=== PATIENT | male | born 1945 | race Caucasian/White ===

== ENCOUNTER 2016-07-25 04:41 | Inpatient (IN) | payer OTHER, MEDICARE ==
[~2016-07-25] VITALS: Ht 160 cm; Wt 87.5 kg
[~2016-07-25 04:41] MED LIST: ASPIRIN EC81 M1 PO; ATORVASTATIN CA40 M1 PO; CARVEDILOL3.125 M1 PO; FERROUS SULFAT324 MG PO; LISINOPRIL5 M1 PO; OCUVITE WITH L1 EACH PO; OMEPRAZOLE20 M2 PO; PLAVIX75 M1 PO; SYNTHROID50 MCG PO
[2016-07-25] MEDS ORDERED: MS CONTIN15 M2 PO (10:37)
[2016-07-25] MEDS ORDERED: MIRALAX17 G1 PO (10:37)
[2016-07-25] MEDS ORDERED: ASPIRIN325 M2 PO (10:37)
[2016-07-25] MEDS ORDERED: COLACE100 M1 PO (10:37)
[2016-07-25] MEDS ORDERED: DILAUDID4 M1 PO (10:37)
--- NOTE | 2016-07-25 10:42 | Patient Discharge Instructions ---
See Addendum Discharge Instructions General Discharge Information You were seen/treated for: Right hip osteoarthritis You had these procedures: Right total hip arthroplasty Special Instructions: Follow-up with Dr. Alcantara in 6 weeks. Call the office with any concerns of fever greater than 101.5. Large amounts of discharge or drainage from the wound or inability to bear weight on your operative side. The visiting nurse will remove your sutures/petey in approximately 2 weeks' time if applicable You may weight-bear as tolerated. Activity as tolerated. Keep the dressing dry as possible, you may shower with the dressing in place however, do not take a bath or submerge the wound in water as this will increase her chance of infection. Change the dressings after the shower. You may use dry gauze and tape or large Band-Aids Do not apply any ointments to the wound. Due to a risk of blood clots you'll need to be on aspirin 81 mg twice a day for the next 4 weeks. *Please hold your Plavix until 6 days after surgery. You may restart it on July 29 Take pain medication as directed. Apply ice as needed for 20 minutes every hour for the first few days. Please take Colace and/or MiraLAX [id number] to avoid constipation while you're on narcotic pain medication. Diet Continue normal diet: Yes Activity Full Activity/No Limits: No Activity Self Limited: Yes Pounds, do NOT lift more than: 10 Additional ACTIVITY Info: WEIGHT BEAR TOLERATED Acute Coronary Syndrome Inclusion Criteria At CA or during hospital stay patient has or had the following: ACS DIAGNOSIS No Discharge Core Measures Meds if any: Prescribed or Continued at Discharge Meds if any: NOT Prescribed or Continued at Discharge Congestive Heart Failure Inclusion Criteria At DC or during hospital stay patient has or had the following: CHF DIAGNOSIS No Discharge Core Measures Meds if any: Prescribed or Continued at Discharge Meds if any: NOT Prescribed or Continued at Discharge Cerebrovascular accident Inclusion Criteria At DC or during hospital stay patient has or had the following: CVA/TIA Diagnosis No Discharge Core Measures Meds if any: Prescribed or Continued at Discharge Meds if any: NOT Prescribed or Continued at Discharge Venous thromboembolism Inclusion Criteria VTE Diagnosis No VTE Type NONE VTE Confirmed by (Test) NONE Discharge Core Measures - Per Current guidelines, there needs to be overlap - treatment for the first 5 days of Warfarin therapy. - If discharged on Warfarin prior to 5 days of - overlap therapy, the patient will need to be - assessed for post discharge needs including - *Post discharge parental anticoagulation - *Warfarin and/or parental anticoagulation education - *Follow up date to check INR post discharge At least 5 days overlap therapy as Inpatient No Meds if any: Prescribed or Continued at Discharge Note: Overlap Therapy is Warfarin and Anticoagulant Meds if any: NOT Prescribed or Continued at Discharge
--- NOTE | 2016-07-25 10:43 | Admission Core Measures ---
Admission Meds I reviewed the following Meds: Current Medications Sig/Alyssa Start time Last Medication Dose Stop Time Status Admin Acetaminophen 975 MG ONCE 07/25 0000 NR (Tylenol) 07/25 2358 Atorvastatin Calcium 40 MG 1700 07/25 170 AC (Lipitor) Carvedilol 3.125 MG BID 07/25 2199 AC (Coreg) Cefazolin Sodium 2,000 MG ONCE 07/25 0000 NR (Kefzol-Ancef Inj) 07/25 2358 Ferrous Sulfate 325 MG BID 07/25 2199 AC (Feosol) Levothyroxine Sodium 0.05 MG DAILY AC 07/26 07 AC (Synthroid) Lisinopril 5 MG DAILY 07/26 1000 AC (Prinivil) Omeprazole 20 MG DAILY AC 07/26 07 AC (Prilosec) Oxycodone HCl 10 MG ONCE 07/25 0000 NR (Roxicodone) 07/25 2358 Acute Coronary Syndrome Inclusion Criteria ACS Diagnosis No Inpatient Core Measures LDL Reminder: If No, please order W/I first 24hr of stay Congestive Heart Failure Inclusion Criteria CHF Diagnosis No Cerebrovascular accident Inclusion Criteria CVA/TIA Diagnosis No Inpatient Core Measures Bedside Swallow Eval Reminder: If BSE failed, place ST order Antithrombotic Reminder: Order Antithrombotic Medication by end of day 2 Antithrombotic Reminder: Document Reason Antithrombotic Not ordered by end of day 2 AFIB/Flutter Reminder: If Present, add to problem list AFIB/Flutter Reminder: Order Anticoag Medication for pts with AFIB/Flutter Atherosclerosis Reminder: If Present, add to problem list LDL Reminder: If No, please order W/I first 24hr of stay PT Order Reminder: If No, please order Venous thromboembolism Inpatient Core Measures VTE Risk Factors: Age > 40, Surgery VTE [facility]axis [facility] VTE prophylaxis d/t No contraindications No VTE Pharm Prophylaxis d/t No contraindications Inclusion Criteria - Per Current guidelines, there needs to be overlap - treatment for the first 5 days of Warfarin therapy. - Parenteral Anticoagulation (IV or SC) needs to be - given along with Warfarin therapy. VTE Diagnosis No VTE Type NONE VTE Confirmed by (Test) NONE Problem List As ranked by this Provider includes Assessment & Plan 1. Unilateral primary osteoarthritis, right hip HOME MEDS Home Med List Aspirin (Ecotrin*) 81 MG TABLET.DR 1 TAB PO DAILY PROPHO (Reported) Aspirin (Aspirin*) 325 MG TABLET 1 TAB PO BID DVT PROPHYLAXSIS Atorvastatin Calcium 40 MG TABLET 1 TAB PO DAILY CHOL (Reported) Carvedilol 3.125 MG TABLET 1 TAB PO BID BP (Reported) Clopidogrel Bisulfate (Plavix) 75 MG TABLET 1 TAB PO DAILY CARDIAC (Reported) Docusate Sodium (Colace) 100 MG CAPSULE 1 CAP PO BID CONSTIPATION Ferrous Sulfate 324 MG (65 MG IRON) TABLET.DR 1 TAB PO DAILY ANEMIA (Reported ) Hydromorphone HCl (Dilaudid) 4 MG TABLET 1-2 TAB PO Q4-6 PRN PRN PAIN Levothyroxine Sodium (Synthroid) 50 MCG TABLET 1 TAB PO DAILY HYPOTHYROID ( Reported) Lisinopril 5 MG TABLET 1 TAB PO DAILY BP (Reported) Morphine Sulfate (Ms Contin) 15 MG TABLET.ER 1 TAB PO BID PAIN Omeprazole 20 MG CAPSULE.DR 1 TAB PO DAILY GERD (Reported) Polyethylene Glycol 3350 (Miralax) 17 GRAM POWD.PACK 1 PAC PO DAILY CONSTIPATION Vit A,C & E/Lutein/Minerals (Ocuvite With Lutein Tablet) 1,000-60-2 TABLET 1 TAB PO DAILY EYES (Reported)
--- NOTE | 2016-07-25 10:51 | Surgical Discharge Summary ---
See Addendum Visit Information Visit Dates Admission Date: 07/25/16 Discharge Date: 07/26/2016 History of Present Illness Chief Complaint: Right hip pain secondary to osteoarthritis Surgical History Pertinent Surgical History: non-contributory Review of Systems: SEE H&P Hospital Course Course Attending Physician: KENNETH SAMPSON MD Primary Care Physician: UNKNOWN Hospital Course: Patient was admitted for elective RIGHT hip replacement secondary to osteoarthritis. The patient tolerated the procedure well without complications. Postoperatively the patient was monitored and tolerated by mouth intake, vital signs are stable, afebrile. Patient was able to void spontaneously. Pain was well-controlled. Evaluated by physical therapy and deemed stable for discharge home. Plan is to follow up as scheduled and instructed to call with any questions or concerns Allergies: Coded Allergies: No Known Allergies (07/25/16) Disposition Summary Disposition Principal Diagnosis: Primary unilateral right hip osteoarthritis Additional Diagnosis: See H&P Discharge Disposition: home health services Discharge Instructions General Discharge Information Code Status: Full Code Patient's Diet: Regular Patient's Activity: As tolerated, no lifting over 10 pounds Follow-Up Instructions/Appts: Follow-up with Dr. Sampson in 6 weeks Medications at Discharge Discharge Medications: Stop taking the following medications: Aspirin (Ecotrin*) 81 MG TABLET.DR ORAL DAILY Clopidogrel Bisulfate (Plavix) 75 MG TABLET ORAL DAILY Continue taking these medications: Omeprazole (Omeprazole) 20 MG CAPSULE. 1 Tablet ORAL DAILY Levothyroxine Sodium (Synthroid) 50 MCG TABLET 1 Tablet ORAL DAILY Lisinopril (Lisinopril) 5 MG TABLET 1 Tablet ORAL DAILY Carvedilol (Carvedilol) 3.125 MG TABLET 1 Tablet ORAL TWICE DAILY Ferrous Sulfate (Ferrous Sulfate) 324 MG (65 MG IRON) TABLET.DR 1 Tablet ORAL DAILY Atorvastatin Calcium (Atorvastatin Calcium) 40 MG TABLET 1 Tablet ORAL DAILY Vit A,C & E/Lutein/Minerals (Ocuvite With Lutein Tablet) 1,000-60-2 TABLET 1 Tablet ORAL DAILY Start taking the following new medications: Morphine Sulfate (Ms Contin) 15 MG TABLET.ER 1 Tablet ORAL TWICE DAILY Qty = 5 No Refills Hydromorphone HCl (Dilaudid) 4 MG TABLET 1-2 Tablet ORAL EVERY 4-6 HOURS NEEDED as needed for PAIN Qty = 36 No Refills Docusate Sodium (Colace) 100 MG CAPSULE 1 Capsule ORAL TWICE DAILY Qty = 30 No Refills Polyethylene Glycol 3350 (Miralax) 17 GRAM POWD.PACK 1 Packet ORAL DAILY Qty = 30 No Refills Instructions: dissolve in water Aspirin (Lo-Dose Aspirin EC) 81 MG TABLET.DR 1 Tablet ORAL TWICE DAILY Qty = 60 No Refills Instructions: CONTINUE FOR 4 WEEKS
[2016-07-25] MEDS ORDERED: LO-DOSE ASPIRIN81 MG PO (11:53)
--- NOTE | 2016-07-25 12:35 | RADIOLOGY REPORT ---
EXAMINATION: XR HIP, RIGHT CLINICAL INFORMATION: Status post right hip replacement. COMPARISON: None TECHNIQUE: Two views of the right hip performed on 3 images. FINDINGS: The patient is status post total right hip arthroplasty with anatomic alignment of the prosthetic component seen. No hardware failure or [place] bone fracture is noted. Postoperative emphysema in the soft tissues is noted. Prominent arteriovascular calcifications are seen with a vascular stent seen in the right iliac artery. IMPRESSION: Anatomic alignment status post total right hip arthroplasty with no evidence of hardware failure or [place] bone fracture seen.
[2016-07-25 13:26] VITALS: BP 102/60
--- NOTE | 2016-07-25 14:42 | NUR ---
12:50- PT ARRIVED TO FLOOR VIA STRETCHER FROM PACU. REPORT RECEIVED FROM DARNELL/ COUNSELING CASE MANAGER. VSS.SURG PA YUSUF MADE AWARE OF B/P 102/60, HR 56. VITAL SIGNS SIMILAR IN PACU AND STABLE PER SURG PA. PT STATES PAIN 0/10 AT THIS TIME. +CMS TO RLE. DRESSING TO R HIP C,D,I. ORIENTED TO ROOM AND CALL LIGHT FOR ASSIST.
[2016-07-25 14:50] VITALS: BP 104/58
--- NOTE | 2016-07-25 15:09 | PN- Orthopedic ---
Subjective Subjective: The patient was seen this afternoon postoperatively. He reports that his pain is under adequate control and he is ambulating well with physical therapy. He has voided postoperatively and has just started a diet. He has no other complaints at the current time and wishes to stay until tomorrow morning to make sure that everything is okay. Objective Vital Signs and I&Os Vital Signs Date Time Temp Pulse Resp B/P Pulse O2 O2 Flow FiO2 Ox Delivery Rate 07/25 1450 98.0 84 18 104/58 94 Room Air 07/25 1326 97.7 56 18 102/60 94 Room Air Intake & Output 07/25 1600 07/25 0800 07/25 0000 07/24 1600 07/24 0800 07/24 0000 Intake Total Output Total Balance Patient 193 lb Weight Physical Exam: Gen.: Alert and in no obvious distress Skin: Warm and dry Cardiac: S1-S2 regular Pulmonary: Bilateral breath sounds equal with adequate exchange Extremities: Bilateral lower extremities are warm without calf tenderness or significant edema. Gross motor and sensory are intact. Right hip surgical dressing is clean, dry, and intact. Assessment/Plan Assessment/Plan Assessment: 71-year-old male status post right total hip arthroplasty postoperative day #1. The patient is progressing as expected and his pain is under adequate control. Plan: Out of bed with physical therapy patient is weightbearing as tolerated Begin aspirin 81 mg by mouth twice a day first dose tonight Patient will resuming his Plavix in 5 days Continue current pain regiment Advance diet as tolerated Hep-Lock IV fluids once tolerating diet GI and DVT prophylaxis Probable discharge home tomorrow Core Measures/Miscellaneous Venous Thromboembolism VTE Risk Factors: Age > 40, Surgery VTE Contraindications: No Contraindications VTE Prophylaxis Ordered Inpt: Mech & Pharm VTE Diagnosis: No VTE Type: NONE VTE Confirmed by (Test): NONE Beta Rodriguez Is Beta Rodriguez a Home Med? Yes If Yes, Was This Ordered Today? Yes Antibiotics Is Patient on Antibiotics? Yes If Yes: prophylaxis
--- NOTE | 2016-07-25 16:53 | Operative Report ---
Operative/Inv Procedure Report Surgery Date: 07/25/16 Name of Procedure: Right total hip replacement Pre-Operative Diagnosis: Primary right hip DJD Post-Operative Diagnosis: Same Estimated Blood Loss: 300 Surgeon/Smeller: CAMILLA VYAS,KENNETH Santo Anesthesia: block Operative/Procedure Note Note: Description of Procedure: The patient was taken to the operating room and positively identified. After induction of spinal anesthesia and administration of appropriate pre-operative antibiotics, the patient was positioned supine on the operating room table and all bony prominences were well padded. After performing a surgical timeout, the right lower extremity was prepped and draped in the usual sterile fashion. A direct anterior approach was made to the right hip. The incision was carried sharply through superficial soft tissues to the level of the fascia. Meticulous hemostasis was maintained with Bovie electocautery. The fascia over the tensor fascia ирина muscle was opened sharply and the interval between the TFL and the sartorius was entered bluntly taking care to stay lateral to the lateral femoral cutaneous nerve. Retractors were placed around the femoral neck and the pericapsular fat was identified. The ascending branches of the lateral femoral circumflex vessels were identified and carefully coagulated. The pericapsular fat and anterior capsule were then resected. A napkin ring osteotomy was performed and the femoral head was removed without difficulty. Attention was then turned to the acetabulum. After appropriate placement of retractors, the acetabulum was exposed. Soft tissue was cleaned from the acetabular margin and notch. Overhanging osteophytes were removed and the teardrop was exposed. The acetabulum was then sequentially reamed to accept a 60 mm Imler Tritanium hemispherical cluster hole shell. This was impacted into place in the appropriate position and a screw was used for supplemental fixation. It was then fitted with a 36 mm Trident X3 zero degree polyethylene insert. Attention was then turned to the femur. After performing the appropriate ligament releases, the proximal femur was exposed. It was then sequentially broached to accept a size 4 Alejandrina accolade 2 stem. This was trialed for leg length and stability. The trial component was removed and the final component was impacted into place. The trunnion was carefully cleaned and fit with a 36 mm, -2.5 Biolox delta ceramic femoral head. The hip was reduced and put through a full range of motion and found to be stable. The articular space was then irrigated with sterile saline. The periarticular soft tissues were infilitrated with Marcaine. The fascial layer was closed with interrupted #1 vicryl suture and the skin was re-approximated with interrupted 2 -0 vicryl. The skin was closed with a running 3-0 V-Lock suture. Steri-strips and a sterile dressing were applied. The patient was awakened and taken to the recovery room in satisfactory condition.
[2016-07-25 17:38] VITALS: BP 140/72
[2016-07-25 19:07] VITALS: BP 120/60
[2016-07-25 21:54] VITALS: BP 126/66
[2016-07-26 02:13] VITALS: BP 120/64
[2016-07-26 06:00] VITALS: BP 104/60
--- NOTE | 2016-07-26 07:02 | PN- Orthopedic ---
Subjective Subjective: 71-year-old male postop day 1 status post right total hip replacement anterior approach. Patient states his pain is controlled with by mouth pain medication. He denies any chest pain, calf pain, shortness of breath, abdominal pain nausea or vomiting. He states he tolerated physical therapy well and has been out of bed and ambulatory and feels comfortable doing this. He states he would like to be discharged home today Objective Vital Signs and I&Os Vital Signs Date Time Temp Pulse Resp B/P Pulse O2 O2 Flow FiO2 Ox Delivery Rate 07/26 0213 98.0 78 20 120/64 92 Room Air 07/25 2154 100.1 84 24 126/66 94 Room Air 07/25 1907 99.1 94 24 120/60 93 Room Air 07/25 1738 98.1 79 24 140/72 95 Room Air 07/25 1455 Room Air 07/25 1450 98.0 84 18 104/58 94 Room Air 07/25 1326 97.7 56 18 102/60 94 Room Air Intake & Output 07/26 0800 07/26 0000 07/25 1600 07/25 0800 07/25 0000 07/24 1600 Intake Total 540 1080 Output Total 425 1050 Balance 115 30 Intake, IV 300 600 Intake, Oral 240 480 Output, Urine 425 1050 Patient 193 lb Weight Physical Exam: Well-developed well-nourished no apparent distress. HEENT: Atraumatic, extraocular motion intact Neck: Supple, no lymphadenopathy Respiratory: No respiratory distress Extremities: No edema RIGHT lower extremity hip dressing in place, Dressing clean dry and intact with minimal bloody staining Incision without erythema Mild thigh edema No signs of infection. No shortening or rotation Hip range of motion is limited and without unexpected pain Neurovascularly intact distally Bilateral calves are supple, nontender. Neuro: Alert and oriented x3 Psych: Mood affect normal, normal memory normal judgment. Skin: Warm and dry, no rash on exposed skin Assessment/Plan Assessment/Plan 71-year-old male postop day 1 status post right total hip replacement anterior approach. -Patient feels well and would like to be discharged home. -Continue pain medication regimen -Patient has cleared physical therapy already -Follow a.m. labs -Continue aspirin 81 mg twice a day for DVT prophylaxis, hold Plavix until 5 days postop -Continue GI prophylaxis this patient has a history of upper GI bleed and gastric ulcer -Anticipate discharge home today pending labs Core Measures/Miscellaneous Venous Thromboembolism VTE Risk Factors: Age > 40, Surgery VTE Contraindications: No Contraindications VTE Prophylaxis Ordered Inpt: Mech & Pharm VTE Diagnosis: No VTE Type: NONE VTE Confirmed by (Test): NONE Beta Rodriguez Is Beta Rodriguez a Home Med? Yes If Yes, Was This Ordered Today? Yes Antibiotics Is Patient on Antibiotics? Yes If Yes: prophylaxis
[2016-07-26 07:53] LABS: ABSOLUTE BASOPHIL COUNT 0.1 /CUMM (0.0-0.2); ABSOLUTE EOSINOPHIL COUNT 0.3 /CUMM (0.0-0.7); ABSOLUTE GRANULOCYTE CT 5.2 /CUMM (1.4-6.5); ABSOLUTE LYMPH COUNT 1.9 /CUMM (1.2-3.4); ABSOLUTE MONOCYTE COUNT 1.2 /CUMM (0.10-0.60); BASOPHIL % 0.9 % (0.0-2.0); EOSINOPHIL % 3.1 % (0-5); GRANULOCYTE % 60.2 % (42.2-75.2); HEMATOCRIT 30.5 % (42-52); MEAN CORPUSCULAR HGB 23.1 PG (27.0-31.0); MEAN CORPUSCULAR HGB CONC 31.8 G/DL (33.0-37.0); MEAN CORPUSCULAR VOLUME 72.8 FL (80.0-94.0); MEAN PLATELET VOLUME 8.9 FL (7.4-10.4); PLATELET COUNT 249 /CUMM (130-400); RBC DISTRIBUTION WIDTH 23.4 % (11.5-14.5); RED BLOOD CELL CT 4.19 /CUMM (4.70-6.10); WHITE BLOOD CELL COUNT 8.6 /CUMM (4.8-10.8)
[2016-07-26 09:11] VITALS: BP 114/60
[2016-07-26 10:15] VITALS: BP 114/60
== END 2016-07-26 12:25 | disposition home health service (06) | DRG 470 ==
LOC: ENRESERVDT → ENRESERVTM → 2NA 04:41 → ENPENDDIS 04:41 → SDA 04:41 → 2NA 12:49
PROVIDERS: Physician Assistant Surgical; ADMIT Orthopaedic Surgery
PROC: 0SR904A Replacement of Right Hip Joint with Ceramic on Polyethylene Synthetic Substitute, Uncemented, Open Approach (ICD-10-PCS; principal; 2016-07-25)
DX: M16.11 Unilateral primary osteoarthritis, right hip (principal); I10 Essential (primary) hypertension; Z87.891 Personal history of nicotine dependence; I25.10 Atherosclerotic heart disease of native coronary artery without angina pectoris
CPT/HCPCS: 2NASP; 73502-RT; 82436; 88304; 97110-GO; 97116-GO; 97161-GP; 97530-GO; J0690; J0735; J2405; J2550; J3490; J7042